=== PATIENT | female | born 1950 | race Caucasian/White ===

== ENCOUNTER 2016-12-13 11:31 | Inpatient (IN) ==
--- NOTE | 2016-12-13 12:21 | Emergency Department Note ---
Disposition Clinical Impression: Transient cerebral ischemia Disposition: Admitted As Inpatient Condition: Fair Referrals: Sarah Parkinson CNP [Primary Care Provider] - Forms: ED Satisfaction Letter Neuro HPI - General Chief Complaint: ED Neuro Symptoms/Deficit Stated Complaint: neuro symptoms, hip pain Time Seen by Provider: 12/13/16 11:58 Source: patient, family Limitations: no limitations Nursing Notes Reviewed: Yes Vital Signs Reviewed: Yes - History of Present Illness HPI Narrative: Patient fell 3 days ago onto her right hip which was a trip and fall and not a syncopal episode and she does have sharp right hip pain which is worse with range of motion when she is able to ambulate and that is the reason she decided to come to the emergency department but on her way here at 11:00 developed some minimal numbness of the right arm and right face. No numbness of the leg. No slurred speech, facial droop or confusion. Patient is on Plavix. No medication used specifically for today's symptoms. The patient does have a history of TIA. Social history: No smoking or alcohol. Is here with her boyfriend - Related Data Home Medications: Home Medications Medication Instructions Recorded Confirmed ALPRAZolam [Xanax 1 MG Tablet] 1 mg PO QID PRN 12/13/16 12/13/16 Amitriptyline [Elavil] 50 mg PO BID 12/13/16 12/13/16 Atenolol [Tenormin] 50 mg PO BID 12/13/16 12/13/16 Bupropion HCl [Wellbutrin Xl] 300 mg PO DAILY 12/13/16 12/13/16 Clopidogrel [Plavix] 75 mg PO DAILY 12/13/16 12/13/16 Doxepin HCl [Doxepin HCl] 50 mg PO HS 12/13/16 12/13/16 Esomeprazole Magnesium [Nexium] 40 mg PO DAILY 12/13/16 12/13/16 FLUoxetine HCl [PROzac] 20 mg PO BID 12/13/16 12/13/16 Furosemide [Lasix] 40 mg PO QPM 12/13/16 12/13/16 Furosemide [Lasix] 80 mg PO QAM 12/13/16 12/13/16 Gabapentin [Neurontin] 800 mg PO TID 12/13/16 12/13/16 Glimepiride [Amaryl] 2 mg PO DAILY 12/13/16 12/13/16 HYDROcodone/Acet 10/325 mg [[place] 1 tab PO Q6HR PRN 12/13/16 12/13/16 10-325 mg] Hydroxychloroquine [Plaquenuil] 200 mg PO BID 12/13/16 12/13/16 Isosorbide MONOnitrate (24 HR) 60 mg PO DAILY 12/13/16 12/13/16 [Imdur] Lisinopril [Zestril] 20 mg PO BID 12/13/16 12/13/16 Oxybutynin Chloride [Ditropan Xl] 10 mg PO DAILY 12/13/16 12/13/16 Rotigotine [Neupro] 1 patch TD DAILY 12/13/16 12/13/16 Simvastatin [Zocor] 40 mg PO DAILY 12/13/16 12/13/16 Xyzal 5 mg PO DAILY 12/13/16 12/13/16 Allergies/Adverse Reactions: Allergies Allergy/AdvReac Type Severity Reaction Status Date / Time diphenhydramine Allergy Palpitation Verified 12/13/16 12:54 [From Benadryl] s shellfish derived Allergy Palpitation Verified 12/13/16 12:54 s Review of Systems: Constitutional: No fever Vision: No blurred vision ENT: No rhinorrhea Respiratory: No new cough Allergic: No allergies : No blood in urine GI: No blood in stool Hematologic: No bruising Dermatologic: No skin rash Musculoskeletal: + pain in the extremities Neuro: + numbness of the extremities Past Medical History - Past Medical History Medical history: Reports: COPD, diabetes, hypertension, TIA Psychiatric history: Reports: no psych history - Social History Smoking Status: Never smoker Smokeless Tobacco Status: No Alcohol use: Reports: none Drug use: Reports: none Physical Exam CONSTITUTIONAL: Well-appearing; well-nourished; A&O X3, in no apparent distress HEAD: Normocephalic; atraumatic. EYES: PERRL, EOMI, no scleral icterus NOSE: The nose is normal in appearance without rhinorrhea NECK: Supple without rigidity, no KATJA RESP: Normal chest excursion with respiration; breath sounds clear and equal bilaterally; no wheezes, rhonchi, or rales CARD: Regular rhythm, without murmurs, rub or gallop ABD: Non-distended; non-tender, soft, without rigidity, rebound or guarding SKIN: Normal for age and race; warm and dry; no apparent lesions, no rash NEUROLOGICAL: Patient is alert and oriented times three. Cranial nerves III- XII are intact. Sensory and motor functions are intact. Finger to nose testing is equal and normal bilaterally. Stroke scale 0 - General Limitations: no limitations General appearance: alert Course Vital Signs Temperature 99.2 F 12/13/16 11:39 Pulse Rate 86 12/13/16 11:39 Respiratory Rate 18 12/13/16 11:39 Blood Pressure 157/82 12/13/16 11:39 O2 Sat by Pulse Oximetry 97 12/13/16 11:39 Temperature 99.2 F 12/13/16 11:39 Pulse Rate 62 12/13/16 13:47 Respiratory Rate 18 12/13/16 13:47 Blood Pressure 154/67 12/13/16 13:47 O2 Sat by Pulse Oximetry 96 12/13/16 13:47 Oxygen Delivery Oxygen Delivery Room Air Neuro Symptoms/Deficit - MDM Narrative Medical decision making narrative: Patient does have a stroke scale of 0. Her symptoms are most concerning for a transient ischemic attack. I will also order a right hip x-ray are she does have pain with palpation over the right hip. This area is normal appearance without erythema or cuts or breaks in the skin. Does have pain with range of motion. The peripheral pulses are 2+ in all [address] brain, labs are pending. The patient will likely be admitted. She is not a thrombolytic candidate due to a stroke scale of 0 1222 - Medical Records Medical records reviewed: Yes I reviewed the patient's medical records. - Lab Data Lab results reviewed: Yes I reviewed the patient's lab results. Result diagrams: 12/13/16 12:12 12/13/16 12:12 Lab Results 12/13/16 12/13/16 12/13/16 Range/Units 12:12 12:12 12:12 WBC 6.6 (4.3-11.1) K/mcL RBC 4.23 (3.82-4.97) M/mcL Hgb 12.3 (11.5-15.4) g/dL Hct 38.3 (35.3-44.9) % MCV 90.5 (83.0-100.0) fL MCH 29.1 (28.0-33.3) pg MCHC 32.1 (31.6-35.5) g/dL RDW 13.2 (11.5-14.5) % Plt Count 253 (140-400) K/mcL MPV 9.9 (9.4-12.4) fL Immature Gran % 0.2 (0-4) % Seg Neutrophils % 59.6 % Lymphocytes % 25.6 % Monocytes % 11.1 % Eosinophils % 2.6 % Basophils % 0.9 % Neutrophils # 3.9 (1.6-8.9) K/mcL Lymphocytes # 1.7 (0.6-4.6) K/mcL Monocytes # 0.7 (0.0-1.3) K/mcL Eosinophils # 0.2 (0.0-0.6) K/mcL Basophils # 0.1 (0.0-0.2) K/mcL Sodium 140 (136-145) mEq/L Potassium 3.8 (3.5-4.5) mEq/L Chloride 104 (98-109) mEq/L Carbon Dioxide 27 (19-29) mEq/L BUN 10 (7-20) mg/dL Creatinine 0.85 (0.57-1.11) mg/dL Est GFR ( Amer) > 60 (> 60) Est GFR (Non-Af Amer) > 60 (> 60) BUN/Creatinine Ratio 12 (6-26) Glucose 123 H (70-99) mg/dL Calculated Osmolality 290 (280-300) Calcium 9.4 (8.6-10.8) mg/dL Troponin I 0.00 (0-0.03) ng/mL - Radiology Data Radiology results reviewed: Yes I reviewed the patient's radiology results. NIH Stroke Scale - Level of Consciousness LOC: Alert - LOC Questions LOC Questions: Answers both correctly - LOC Commands LOC Commands: Performs both correctly - Best Gaze Best Gaze: Normal - Visual Visual: No visual loss - Facial Palsy Facial Palsy: Normal - Motor Arms Motor Arm-Left: No drift for 10 seconds Motor Arm-Right: No drift for 10 seconds - Motor Legs Motor Leg-Left: No drift for 5 seconds Motor Leg-Right: No drift for 5 seconds - Limb Ataxia Limb Ataxia: Normal, No Ataxia - Sensory Sensory: Normal - Best Language Best Language: No aphasia - Dysarthria Dysarthria: Normal - Extinction and Inattention Extinction and Inattention: Normal - NIHSS Total Score NIHSS Total Score: 0 TPA Checklist - LKW: 3-4.5 hrs Add. Warnings/Precautions Patient/family understanding: The patient/family members have been counseled and understood the risk, benefit , and alternatives of treatment.
[2016-12-13 12:22] LABS: Basophils # 0.1 K/mcL (0.0-0.2); Basophils % 0.9 %; Eosinophils # 0.2 K/mcL (0.0-0.6); Eosinophils % 2.6 %; Hematocrit 38.3 % (35.3-44.9); Hemoglobin 12.3 g/dL (11.5-15.4); Immature Granulocytes % 0.2 % (0-4); Lymphocytes # 1.7 K/mcL (0.6-4.6); Lymphocytes % 25.6 %; Mean Corpuscular HGB Conc 32.1 g/dL (31.6-35.5); Mean Corpuscular Hemoglobin 29.1 pg (28.0-33.3); Mean Corpuscular Volume 90.5 fL (83.0-100.0); Mean Platelet Volume 9.9 fL (9.4-12.4); Monocytes # 0.7 K/mcL (0.0-1.3); Monocytes % 11.1 %; Neutrophils # 3.9 K/mcL (1.6-8.9); Platelet Count 253 K/mcL (140-400); Red Blood Count 4.23 M/mcL (3.82-4.97); Red Cell Distribution Width 13.2 % (11.5-14.5); Segmented Neutrophils % 59.6 %
[2016-12-13 12:32] LABS: BUN/Creatinine Ratio 12 (6-26); Blood Urea Nitrogen 10 mg/dL (7-20); Calcium 9.4 mg/dL (8.6-10.8); Carbon Dioxide 27 mEq/L (19-29); Chloride 104 mEq/L (98-109); Glucose 123 mg/dL (70-99); Osmolality,Calculated 290 (280-300); Potassium 3.8 mEq/L (3.5-4.5); Sodium 140 mEq/L (136-145); eGFR For African Americans > 60 (> 60); eGFR For Non-African Americans > 60 (> 60)
[2016-12-13] MEDS ORDERED: *HR* Promethazine 25 MG/ML VIAL IVP PRN (15:10)
[2016-12-13] MEDS ORDERED: *HR* HYDROcodone/Acet 5/325 mg TABLET PO PRN (15:10)
[2016-12-13] MEDS ORDERED: Naloxone 0.4 MG/ML INJ IVP PRN (15:10)
[2016-12-13] MEDS ORDERED: MOM Conc 10 ML UD.LIQ PO PRN (15:10)
[2016-12-13] MEDS ORDERED: Acetaminophen 325 MG TABLET PO PRN (15:10)
[2016-12-13] MEDS ORDERED: Ondansetron 4 MG/2 ML VIAL IVP PRN (15:10)
--- NOTE | 2016-12-13 15:31 | Internal Med History&Physical ---
Date of Encounter: 12/13/16 Time of Encounter: 14:45 Assessment and Plan (1) Right hip pain Current visit: Yes Status: Acute Will place the pt into Med Surg for observation Reviewed her Rt hip X ray - no acute fracture.. DJD changed noticed Will get PT / OT eval Also get Lumbar spine x ray Concerning for Sciatica pain.. if pain persists will get MRI of lumbar spine Cont symptomatic and supportive care on PO an IV analgesics PRN (2) Transient cerebral ischemia Current visit: Yes Status: Acute ruled out Her symptoms does not look like TIA All her parasthesia symptoms are chronic and intermittent for this pt Reviewed CT of Head no acute changes Does not need any further work up regarding this cont home med Plavix for now Qualifiers: Qualified Code(s): G45.9 - Transient cerebral ischemic attack, unspecified (3) Low back pain radiating down leg Current visit: Yes Status: Acute (4) Sciatica of right side Current visit: Yes Status: Acute Ordered lumbar spine X ray (5) HTN (hypertension) Current visit: Yes Status: Chronic stable resumed all her home meds Qualifiers: Qualified Code(s): I10 - Essential (primary) hypertension (6) DM2 (diabetes mellitus, type 2) Current visit: Yes Status: Acute Resumed home med Amaryl will check HgA1C in AM Qualifiers: Qualified Code(s): E11.9 - Type 2 diabetes mellitus without complications Internal Medicine - H&P: HPI Chief complaint: Rt hip pain Admitted From: Emergency Dept Plans for Post Hospital Care: Home History of present illness: Ms. Dodge is a 65 year old female with known PMH of TIA, Parkinson's disease, chronic parasthesia symptoms, HTN, HLD, and Low back pain , now she presented to our ER today c/o worsening Rt hip pain and low back pain. She always feels numbness in her Rt leg. Denied any acute new onset of focal weakness , numbness or parasthesia symptoms. She did mention to ER attending about Facial numbness. Even her Rt facial numbness is chronic and intermittent for her. Her main concern and chief complaint today is Rt hip pain. Pt denied any trauma to Rt hip. Denied any CP / SOB. No GI / symptoms Past Med Surg Social Fam HX - Past Medical History Medical history: COPD, diabetes, hypertension, TIA Psychiatric history: no psych history - Past Surgical History Surgical History: no surgical history (No recent surgeries) - Social History Smoking Status: Never smoker Smokeless Tobacco Status: No Alcohol use: none Drug use: none - Additional Family History Additional family history: Reviewed and non contribuitory to current problem Internal Medicine - H&P: Meds ALPRAZolam [Xanax 1 MG Tablet] 1 mg PO QID PRN 12/13/16 [History] Amitriptyline [Elavil] 50 mg PO BID 12/13/16 [History] Atenolol [Tenormin] 50 mg PO BID 12/13/16 [History] Bupropion HCl [Wellbutrin Xl] 300 mg PO DAILY 12/13/16 [History] Clopidogrel [Plavix] 75 mg PO DAILY 12/13/16 [History] Doxepin HCl [Doxepin HCl] 50 mg PO HS 12/13/16 [History] Esomeprazole Magnesium [Nexium] 40 mg PO DAILY 12/13/16 [History] FLUoxetine HCl [PROzac] 20 mg PO BID 12/13/16 [History] Furosemide [Lasix] 40 mg PO QPM 12/13/16 [History] Furosemide [Lasix] 80 mg PO QAM 12/13/16 [History] Gabapentin [Neurontin] 800 mg PO TID 12/13/16 [History] Glimepiride [Amaryl] 2 mg PO DAILY 12/13/16 [History] HYDROcodone/Acet 10/325 mg [[place] 10-325 mg] 1 tab PO Q6HR PRN 12/13/16 [History ] Hydroxychloroquine [Plaquenuil] 200 mg PO BID 12/13/16 [History] Isosorbide MONOnitrate (24 HR) [Imdur] 60 mg PO DAILY 12/13/16 [History] Lisinopril [Zestril] 20 mg PO BID 12/13/16 [History] Oxybutynin Chloride [Ditropan Xl] 10 mg PO DAILY 12/13/16 [History] Rotigotine [Neupro] 1 patch TD DAILY 12/13/16 [History] Simvastatin [Zocor] 40 mg PO DAILY 12/13/16 [History] Xyzal 5 mg PO DAILY 12/13/16 [History] 3 Allergy/AdvReac Type Severity Reaction Status Date / Time diphenhydramine Allergy Palpitation Verified 12/13/16 12:54 [From Benadryl] s shellfish derived Allergy Palpitation Verified 12/13/16 12:54 s All Systems PM: A 10-system review of systems was performed and is negative for pertinent findings except as documented above in the HPI. Review of systems: All the systems are reviewed everything is benign except the systems and symptoms I mentioned in the history of present illness - Constitutional Vitals: Temp Pulse Resp BP Pulse Ox 99.2 F 62 16 150/71 96 12/13/16 11:39 12/13/16 13:47 12/13/16 14:51 12/13/16 14:51 12/13/16 13:47 General appearance: Present: A&O X 3, pleasant, no acute distress, answers questions appropriately - Head Head exam: Present: atraumatic, normal inspection - Neck Neck exam general surgery: Present: supple - Respiratory Respiratory exam: Present: CTAB. Absent: accessory muscle use, rales, rhonchi, wheezes - Cardiovascular Cardiovascular exam: Present: RRR, +S1, +S2. Absent: diastolic murmur, gallop, rubs, systolic murmur - GI/Abdominal GI/Abdominal exam: Present: normal bowel sounds, soft, no peritoneal signs. Absent: distended, tenderness - Extremities Exam Extremities exam: Absent: calf tenderness, pedal edema, tenderness Additional comments: ROM slightly limited in Rt hip due to pain.. no swelling / no sings of infection noticed in Rt hip area. - Back Exam Back exam: Present: paraspinal tenderness (lower lumbar region), vertebral tenderness (lumbar region). Absent: CVA tenderness (L), CVA tenderness (R) - Neurological Exam Neurological exam: Present: alert, CN II-XII intact, oriented X3, no focal deficits, strengths equal and symetr throughout. Absent: motor sensory deficit , pronater drift, facial droop, speech deficit - Psychiatric Psychiatric exam: Present: normal affect, normal mood Internal Med - H&P Results - Labs CBC & Chem 7: 12/13/16 12:12 12/13/16 12:12
[2016-12-13] MEDS: Furosemide 40 MG TABLET PO SCH (17:35)
[2016-12-13] MEDS: ALPRAZolam 1 MG TABLET PO PRN (17:35)
[2016-12-13] MEDS: *HR* Morphine 2 MG/ML SYRINGE IVP PRN (17:35)
[2016-12-13] MEDS: Lisinopril 20 MG TABLET PO SCH (20:27)
[2016-12-13] MEDS: Gabapentin 400 MG CAPSULE PO SCH (20:27)
[2016-12-13] MEDS: FLUoxetine 20 MG CAPSULE PO SCH (20:28)
[2016-12-13] MEDS: Famotidine 20 MG TABLET PO SCH (20:30)
[2016-12-13] MEDS: *HR* HYDROcodone/Acet 10/325 mg TABLET PO PRN (20:30)
[2016-12-14] MEDS: *HR* Morphine 2 MG/ML SYRINGE IVP PRN ×3 (04:06→19:52)
[2016-12-14 04:41] LABS: Basophils # 0.1 K/mcL (0.0-0.2); Basophils % 0.8 %; Eosinophils # 0.3 K/mcL (0.0-0.6); Eosinophils % 4.3 %; Hematocrit 36.6 % (35.3-44.9); Hemoglobin 11.6 g/dL (11.5-15.4); Immature Granulocytes % 0.2 % (0-4); Lymphocytes # 2.1 K/mcL (0.6-4.6); Lymphocytes % 32.6 %; Mean Corpuscular HGB Conc 31.7 g/dL (31.6-35.5); Mean Corpuscular Hemoglobin 28.8 pg (28.0-33.3); Mean Corpuscular Volume 90.8 fL (83.0-100.0); Mean Platelet Volume 10.3 fL (9.4-12.4); Monocytes # 0.8 K/mcL (0.0-1.3); Monocytes % 12.5 %; Neutrophils # 3.2 K/mcL (1.6-8.9); Platelet Count 261 K/mcL (140-400); Red Blood Count 4.03 M/mcL (3.82-4.97); Red Cell Distribution Width 13.1 % (11.5-14.5); Segmented Neutrophils % 49.6 %
[2016-12-14 04:46] LABS: Hemoglobin A1C 6.6 %
[2016-12-14 05:01] LABS: BUN/Creatinine Ratio 8 (6-26); Blood Urea Nitrogen 8 mg/dL (7-20); Calcium 8.8 mg/dL (8.6-10.8); Carbon Dioxide 28 mEq/L (19-29); Chloride 105 mEq/L (98-109); Chol/HDL Ratio 2.4 (0-4.9); Cholesterol 118 mg/dL (< 200); Glucose 124 mg/dL (70-99); HDL Cholesterol 50 mg/dL (40-59); LDL Cholesterol,Calculated 55 mg/dL (0-99); Osmolality,Calculated 292 (280-300); Potassium 3.8 mEq/L (3.5-4.5); Sodium 141 mEq/L (136-145); Triglycerides 67 mg/dL (< 150); eGFR For African Americans > 60 (> 60); eGFR For Non-African Americans 52 (> 60)
[2016-12-14] MEDS: Gabapentin 400 MG CAPSULE PO SCH ×3 (07:43→20:00)
[2016-12-14] MEDS: Isosorbide MONOnitrate (24 HR) 60 MG TAB.ER.24H PO SCH (07:43)
[2016-12-14] MEDS: Famotidine 20 MG TABLET PO SCH ×2 (07:43→19:59)
[2016-12-14] MEDS: (Rotigotine [Neupro] 1 PATCH) TP SCH (07:44)
[2016-12-14] MEDS: Lisinopril 20 MG TABLET PO SCH ×2 (07:44→20:03)
[2016-12-14] MEDS: Loratadine 10 MG TABLET PO SCH (07:44)
[2016-12-14] MEDS: Furosemide 40 MG TABLET PO SCH ×2 (07:44→17:30)
[2016-12-14] MEDS: *HR* Glimepiride 2 MG TABLET PO SCH (07:44)
[2016-12-14] MEDS: FLUoxetine 20 MG CAPSULE PO SCH ×2 (07:44→19:59)
[2016-12-14] MEDS: BuPROPion XL (24 HR) 150 MG TABLET PO SCH (07:44)
--- NOTE | 2016-12-14 10:27 | Internal Med Progress Note ---
Date of Encounter: 12/14/16 Time of Encounter: 10:30 - Assessment and plan (1) Transient cerebral ischemia Current Visit: Yes Status: Acute Assessment and plan: Sudden onset of right facial numbness and right hand numbness concerning for TIA. We will obtain an MRI of the brain, echocardiogram and carotid Doppler as part of the workup. We will check lipid panel. Qualifiers: Qualified Code(s): G45.9 - Transient cerebral ischemic attack, unspecified (2) Right hip pain Current Visit: Yes Status: Acute Assessment and plan: Hip x-ray shows no fracture however it is recommended that MRI is obtained for increased sensitivity to detect occult fracture. I will obtain an MR of the right hip to rule out occult fracture. (3) Low back pain radiating down leg Current Visit: Yes Status: Acute Assessment and plan: She does have tenderness to palpation of the lower lumbar spine. She has a history of degenerative disease. Some of her hip pain could be referred from degenerative disc disease and or spinal stenosis. I will obtain an MRI of the lumbar spine to evaluate for her back pain and right hip pain. (4) HTN (hypertension) Current Visit: Yes Status: Chronic Assessment and plan: Continue with atenolol and lisinopril. Qualifiers: Hypertension type: essential hypertension Qualified Code(s): I10 - Essential (primary) hypertension (5) DM2 (diabetes mellitus, type 2) Current Visit: Yes Status: Acute Assessment and plan: Diabetic diet. Continue with glimepiride. Absent insulin sliding scale low- dose. Qualifiers: Diabetes mellitus complication status: without complication Diabetes mellitus usp insulin use: without terminal worker use Qualified Code(s): E11.9 - Type 2 diabetes mellitus without complications - Subjective Interval history: Patient presented to the hospital for evaluation of right hip pain which she says started 3 days ago, worse with ambulation, described as sharp and burning associated with point tenderness over the right hip, no numbness or weakness of the right lower extremity. While evaluated in the emergency department yesterday she also admitted to having worsening right facial numbness and right upper extremity numbness which she has been having on and off in the past. - Constitutional Vitals: Temp Pulse Resp BP Pulse Ox 98.4 F 56 16 113/67 95 12/14/16 06:54 12/14/16 06:54 12/14/16 06:54 12/14/16 06:54 12/14/16 06:54 General appearance: Present: A&O X 3, pleasant, no acute distress, answers questions appropriately - Respiratory Respiratory exam: Present: CTAB. Absent: accessory muscle use, rales, rhonchi, wheezes - Cardiovascular Cardiovascular exam: Present: RRR, +S1, +S2. Absent: diastolic murmur, gallop, rubs, systolic murmur - GI/Abdominal GI/Abdominal exam: Present: normal bowel sounds, soft, no peritoneal signs. Absent: distended, tenderness - Extremities Exam Extremities exam: Present: warm, radial pulses palpable and symmetrical. Absent : calf tenderness, cyanotic, pedal edema - Neurological Exam Neurological exam: Present: CN II-XII intact, oriented X3, no focal deficits. Absent: pronater drift, facial droop, speech deficit - Skin Skin exam: Present: dry, intact Internal Medicine: Result - Labs CBC & Chem 7: 12/14/16 03:39 12/14/16 03:39 Labs: Short CBC 12/14/16 Range/Units 03:39 WBC 6.3 (4.3-11.1) K/mcL Hgb 11.6 (11.5-15.4) g/dL Hct 36.6 (35.3-44.9) % Plt Count 261 (140-400) K/mcL Neutrophils # 3.2 (1.6-8.9) K/mcL BMP 12/14/16 03:39 Sodium 141 Potassium 3.8 Chloride 105 Carbon Dioxide 28 BUN 8 Creatinine 1.06 Glucose 124 H Calcium 8.8 - Impressions Impressions Lumbar Spine X-Ray 12/13/16 15:14 IMPRESSION: Mild lower lumbar spine degenerative changes, not significantly progressed. D/ / 12/13/2016 15:52:48 Pito Lozano MD / rosamaria Interpreting Provider: Pito Lozano MD Consult Discharge Plan - Plan Referrals: Sarah Parkinson CNP [Primary Care Provider] -
[2016-12-14] MEDS ORDERED: *HR* Dextrose 50 % in Water (Syg) 50 ML SYRINGE IVP PRN (10:31)
[2016-12-14] MEDS ORDERED: D5% in Water 1,000 ML IVC PRN (10:31)
[2016-12-14] MEDS ORDERED: Dextrose Gel 15 GM PO PRN ×2 (10:31)
[2016-12-14] MEDS: Insulin LISPRO 300 UNITS/3 ML VIAL SQ SCH ×3 (11:16→22:18)
[2016-12-14] MEDS: ALPRAZolam 1 MG TABLET PO PRN ×2 (11:17→19:59)
[2016-12-14] MEDS: *HR* HYDROcodone/Acet 10/325 mg TABLET PO PRN (13:57)
[2016-12-15] MEDS: *HR* Enoxaparin 40 MG/0.4 ML SYRINGE SQ SCH (05:23)
[2016-12-15 06:04] LABS: Basophils # 0.1 K/mcL (0.0-0.2); Basophils % 0.8 %; Eosinophils # 0.2 K/mcL (0.0-0.6); Eosinophils % 3.1 %; Hematocrit 37.4 % (35.3-44.9); Hemoglobin 11.9 g/dL (11.5-15.4); Immature Granulocytes % 0.1 % (0-4); Lymphocytes # 2.2 K/mcL (0.6-4.6); Lymphocytes % 29.5 %; Mean Corpuscular HGB Conc 31.8 g/dL (31.6-35.5); Mean Corpuscular Hemoglobin 28.9 pg (28.0-33.3); Mean Corpuscular Volume 90.8 fL (83.0-100.0); Mean Platelet Volume 10.3 fL (9.4-12.4); Monocytes # 0.8 K/mcL (0.0-1.3); Monocytes % 10.8 %; Neutrophils # 4.1 K/mcL (1.6-8.9); Platelet Count 253 K/mcL (140-400); Red Blood Count 4.12 M/mcL (3.82-4.97); Red Cell Distribution Width 13.3 % (11.5-14.5); Segmented Neutrophils % 55.7 %
[2016-12-15] MEDS: *HR* HYDROcodone/Acet 10/325 mg TABLET PO PRN ×2 (06:14→14:49)
[2016-12-15 06:20] LABS: BUN/Creatinine Ratio 16 (6-26); Blood Urea Nitrogen 16 mg/dL (7-20); Calcium 9.2 mg/dL (8.6-10.8); Carbon Dioxide 28 mEq/L (19-29); Chloride 104 mEq/L (98-109); Glucose 128 mg/dL (70-99); Osmolality,Calculated 293 (280-300); Potassium 3.9 mEq/L (3.5-4.5); Sodium 140 mEq/L (136-145); eGFR For African Americans > 60 (> 60); eGFR For Non-African Americans 55 (> 60)
[2016-12-15] MEDS: Insulin LISPRO 300 UNITS/3 ML VIAL SQ SCH ×4 (07:47→21:20)
[2016-12-15] MEDS: Loratadine 10 MG TABLET PO SCH (09:26)
[2016-12-15] MEDS: *HR* Morphine 2 MG/ML SYRINGE IVP PRN (09:26)
[2016-12-15] MEDS: Isosorbide MONOnitrate (24 HR) 60 MG TAB.ER.24H PO SCH (09:26)
[2016-12-15] MEDS: *HR* Glimepiride 2 MG TABLET PO SCH (09:27)
[2016-12-15] MEDS: Famotidine 20 MG TABLET PO SCH ×2 (09:27→21:15)
[2016-12-15] MEDS: BuPROPion XL (24 HR) 150 MG TABLET PO SCH (09:27)
[2016-12-15] MEDS: Gabapentin 400 MG CAPSULE PO SCH ×3 (09:27→21:15)
[2016-12-15] MEDS: FLUoxetine 20 MG CAPSULE PO SCH ×2 (09:27→21:15)
[2016-12-15] MEDS: Lisinopril 20 MG TABLET PO SCH ×2 (09:27→21:39)
[2016-12-15] MEDS: Furosemide 40 MG TABLET PO SCH ×2 (09:27→17:59)
[2016-12-15] MEDS: (Rotigotine [Neupro] 1 PATCH) TP SCH (09:28)
--- NOTE | 2016-12-15 17:28 | Internal Med Progress Note ---
Date of Encounter: 12/15/16 Time of Encounter: 11:00 - Assessment and plan (1) Transient cerebral ischemia Current Visit: Yes Status: Acute Assessment and plan: Sudden onset of right facial numbness and right hand numbness concerning for TIA. MRI of the brain was negative for acute CVA, will obtain echocardiogram and carotid Doppler as part of the workup. We will check lipid panel. Continue aspirin. Qualifiers: Qualified Code(s): G45.9 - Transient cerebral ischemic attack, unspecified (2) Right hip pain Current Visit: Yes Status: Acute Assessment and plan: Hip x-ray shows no fracture however it is recommended that MRI is obtained for increased sensitivity to detect occult fracture. I MRI of the right hip shows no fracture or any acute abnormalities. (3) Low back pain radiating down leg Current Visit: Yes Status: Acute Assessment and plan: She does have tenderness to palpation of the lower lumbar spine. She has a history of degenerative disease. Some of her hip pain could be referred from degenerative disc disease and or spinal stenosis. MRI of the lumbar spine shows findings concerning for degenerative disease. Pain consistent with sciatica. Start Percocet. Stop morphine. Continue with gabapentin. Shingles enters the differential however there is no rash. "Zoster sine herpete" is an uncertain clinical entity and there is not enough data to recommend antiviral treatment. (4) HTN (hypertension) Current Visit: Yes Status: Chronic Assessment and plan: Continue with atenolol and lisinopril. Qualifiers: Hypertension type: essential hypertension Qualified Code(s): I10 - Essential (primary) hypertension (5) DM2 (diabetes mellitus, type 2) Current Visit: Yes Status: Acute Assessment and plan: Diabetic diet. Continue with glimepiride. Absent insulin sliding scale low- dose. Qualifiers: Diabetes mellitus complication status: without complication Diabetes mellitus penitentiary insulin use: without penitentiary use Qualified Code(s): E11.9 - Type 2 diabetes mellitus without complications - Subjective Interval history: Patient reports severe right hip and right buttock burning pain, worse with ROM , improves with IV morphine only. Denies any associated lower extremity weakness. She has been able to ambulate within her room. She denies any associated rash. - Constitutional Vitals: Temp Pulse Resp BP Pulse Ox 97.3 F L 58 15 94/60 95 12/15/16 15:39 12/15/16 15:39 12/15/16 15:39 12/15/16 15:39 12/15/16 15:39 General appearance: Present: A&O X 3, pleasant, no acute distress, answers questions appropriately - Eye Eye exam: Present: PERRL, conjuntiva pink, sclera anicteric Pupils: Present: PERRL - Respiratory Respiratory exam: Present: CTAB. Absent: accessory muscle use, rales, rhonchi, wheezes - Cardiovascular Cardiovascular exam: Present: RRR, +S1, +S2. Absent: diastolic murmur, gallop, rubs, systolic murmur - GI/Abdominal GI/Abdominal exam: Present: normal bowel sounds, soft, no peritoneal signs. Absent: distended, tenderness - Skin Skin exam: Present: dry, intact - Other Additional findings: Musculoskeletal: Point tenderness to palpation over the right gluteal area and right lower lumbar area as well as the right hip. Internal Medicine: Result - Labs CBC & Chem 7: 12/15/16 05:04 12/15/16 05:04 Labs: Short CBC 12/15/16 Range/Units 05:04 WBC 7.4 (4.3-11.1) K/mcL Hgb 11.9 (11.5-15.4) g/dL Hct 37.4 (35.3-44.9) % Plt Count 253 (140-400) K/mcL Neutrophils # 4.1 (1.6-8.9) K/mcL BMP 12/15/16 05:04 Sodium 140 Potassium 3.9 Chloride 104 Carbon Dioxide 28 BUN 16 Creatinine 1.01 Glucose 128 H Calcium 9.2 Consult Discharge Plan - Plan Referrals: Sarah Parkinson CNP [Primary Care Provider] -
[2016-12-15] MEDS ORDERED: Aspirin Enteric Coated 81 MG Tablet PO SCH (17:30)
[2016-12-15] MEDS: *HR* OxyCODONE/APAP 7.5/325 TABLET PO PRN (17:59)
[2016-12-15] MEDS: ALPRAZolam 1 MG TABLET PO PRN (21:18)
[2016-12-16] MEDS: *HR* Enoxaparin 40 MG/0.4 ML SYRINGE SQ SCH (05:08)
[2016-12-16] MEDS: *HR* OxyCODONE/APAP 7.5/325 TABLET PO PRN (05:13)
[2016-12-16] MEDS: Gabapentin 400 MG CAPSULE PO SCH ×3 (08:43→20:44)
[2016-12-16] MEDS: Famotidine 20 MG TABLET PO SCH ×2 (08:43→20:44)
[2016-12-16] MEDS: FLUoxetine 20 MG CAPSULE PO SCH ×2 (08:44→20:45)
[2016-12-16] MEDS: BuPROPion XL (24 HR) 150 MG TABLET PO SCH (08:44)
[2016-12-16] MEDS: Loratadine 10 MG TABLET PO SCH (08:45)
[2016-12-16] MEDS: *HR* Glimepiride 2 MG TABLET PO SCH (08:45)
[2016-12-16] MEDS: (Rotigotine [Neupro] 1 PATCH) TP SCH (08:45)
[2016-12-16] MEDS: Lisinopril 20 MG TABLET PO SCH (08:46)
[2016-12-16] MEDS: Isosorbide MONOnitrate (24 HR) 60 MG TAB.ER.24H PO SCH (08:46)
[2016-12-16] MEDS: Furosemide 40 MG TABLET PO SCH (08:47)
[2016-12-16] MEDS: Insulin LISPRO 300 UNITS/3 ML VIAL SQ SCH ×4 (08:47→20:45)
[2016-12-16] MEDS: ALPRAZolam 1 MG TABLET PO PRN (10:51)
--- NOTE | 2016-12-16 11:45 | Carotid Imaging Report ---
Carotid Duplex Patient Name:Laura Dodge Order Number:[id number] Procedure Date:12/15/2016 Date:1950ge:65 yrs Gender:Female Lt BP:103 / 66 mmHg Rt.BP:101 / 62 mmHgHeart Rate: Location:[facility] Room #: [id number] Material Stockkeeper Yard:Nevaeh Solo RDCS Referring MD:Olaf Ferrari MD Reading MD:Eyal Suarez MD Primary Indications:TIA Risk Factors Yes/No Hypertension Yes Hypercholesterolemia Yes Diabetes Yes Impressions: Findings: Bilateral ICA has a severe, 60-79% stenosis. Recommendations: Risk Factor Modification, Medical Therapy, and Follow up exam 12 months. After imaging the patient returned to their room. Findings Carotid Duplex: Right: The right proximal common carotid artery has a PSV of 109 cm/s and a EDV of 25 cm/s. The right mid common carotid artery has a PSV of 101 cm/s and a EDV of 28 cm/s. The right distal common carotid artery has a PSV of 92 cm/s and a EDV of 24 cm/s. The right bifurcation has a PSV of 78 cm/s and a EDV of 21 cm/s. The right proximal internal carotid artery has a PSV of 74 cm/s and a EDV of 20 cm/s. The right mid internal carotid artery has a PSV of 88 cm/s and a EDV of 28 cm/s. There is 60-79% stenosis in the right distal internal carotid artery with a PSV of 168 cm/s and a EDV of 47 cm/s. The right eca has a PSV of 146 cm/s and a EDV of 20 cm/s. The right vertebral artery has a PSV of 99 cm/s and a EDV of 23 cm/s. Left: The left proximal common carotid artery has a PSV of 126 cm/s and a EDV of 38 cm/s. The left mid common carotid artery has a PSV of 124 cm/s and a EDV of 34 cm/s. The left distal common carotid artery has a PSV of 116 cm/s and a EDV of 30 cm/s. The left bifurcation has a PSV of 109 cm/s and a EDV of 30 cm/s. There is 60-79% stenosis in the left proximal internal carotid artery with a PSV of 168 cm/s and a EDV of 52 cm/s. There is 60-79% stenosis in the left mid internal carotid artery with a PSV of 172 cm/s and a EDV of 29 cm/s. There is 60-79% stenosis in the left distal internal carotid artery with a PSV of 157 cm/s and a EDV of 50 cm/s. The left eca has a PSV of 169 cm/s and a EDV of 29 cm/s. The left vertebral artery has a PSV of 50 cm/s and a EDV of 11 cm/s. Prior Study: No prior study available for comparison. Carotid Results Right PSV EDV Assessment Proximal CCA 109 25 Normal Mid CCA 101 28 Normal Distal CCA 92 24 Normal Bifurcation 78 21 Normal Proximal ICA 74 20 Normal Mid ICA 88 28 Normal Distal ICA 168 47 60-79% stenosis ECA 146 20 Normal Vertebral Artery 99 23 Normal Left PSV EDV Assessment Proximal CCA 126 38 Normal Mid CCA 124 34 Normal Distal CCA 116 30 Normal Bifurcation 109 30 Normal Proximal ICA 168 52 60-79% stenosis Mid ICA 172 29 60-79% stenosis Distal ICA 157 50 60-79% stenosis ECA 169 29 Normal Vertebral Artery 50 11 Normal Ratio's Right ICA/CCA Ratio: 1.66 ICA/CCA Values: 168/101 Left ICA/CCA Ratio: 1.39 ICA/CCA Values: 172/124 Updated by Eyal Suarez MD on 12/16/2016 11:38:33 AM electronically signed on 12/16/2016 11:38:43 AM with status of Final
--- NOTE | 2016-12-16 13:35 | Internal Med Progress Note ---
Addendum entered and electronically signed by Kate Hess DO 12/16/16 16:17: Continue to monitor creatinine. Original Note: <Kate Hess - Last Filed: 12/16/16 15:47> Date of Encounter: 12/16/16 Time of Encounter: 10:45 - Assessment and plan (1) Transient cerebral ischemia Current Visit: Yes Status: Acute Assessment and plan: Sudden onset of right facial numbness and right hand numbness concerning for TIA - patient states she no longer has this symptom -carotid Doppler: bilateral ICA has a severe, 60-79% stenosis -MRI of the brain was negative for acute CVA -echocardiogram: LVEF 60% normal left ventricular size in systolic function, while diastolic dysfunction of the left ventricle, no pulmonary hypertension or valvular dysfunction -Vascular consulted -We will check lipid panel -Continue Plavix, simvastatin Qualifiers: Transient cerebral ischemia type: unspecified Qualified Code(s): G45.9 - Transient cerebral ischemic attack, unspecified (2) Right hip pain Current Visit: Yes Status: Acute Assessment and plan: Hip x-ray shows no fracture MRI shows no fracture or any acute abnormalities -continue patient medication of hydrocodone for pain (3) Low back pain radiating down leg Current Visit: Yes Status: Acute Assessment and plan: She reports that pain rating on the leg has improved some. She does have tenderness to palpation of the lower lumbar spine. She has a history of degenerative disease. Some of her hip pain could be referred from degenerative disc disease and or spinal stenosis. MRI of the lumbar spine shows findings concerning for degenerative disease. Pain consistent with sciatica. MRI of hip shows mild liberal degeneration with no discrete tear -Continue hydrocodone in gabapentin. (4) HTN (hypertension) Current Visit: Yes Status: Chronic Assessment and plan: Patient's blood pressure has been low: 96/59 Continue on medications of atenol, AM lasix hold lisinopril, isosorbide mono nitrate, and PM lasix Qualifiers: Hypertension type: essential hypertension Qualified Code(s): I10 - Essential (primary) hypertension (5) DM2 (diabetes mellitus, type 2) Current Visit: Yes Status: Acute Assessment and plan: Continue insulin sliding scale low-dose continue glimiperide diabetic diet Qualifiers: Diabetes mellitus complication status: without complication Diabetes mellitus fdc insulin use: without fdc use Qualified Code(s): E11.9 - Type 2 diabetes mellitus without complications (6) DVT prophylaxis Current Visit: Yes Status: Acute Assessment and plan: Lovenox - Subjective Interval history: Patient is lying in bed comfortably with her book in hand She has no complaints at this time - Constitutional Vitals: Temp Pulse Resp BP Pulse Ox 98.7 F 61 15 96/59 93 12/16/16 11:28 12/16/16 11:28 12/16/16 11:28 12/16/16 11:28 12/16/16 11:28 General appearance: Present: A&O X 3, pleasant, no acute distress, answers questions appropriately Exam: Gen.: Vitals noted. No acute distress. AAOx3 HEENT: oropharynx clear, Normocephalic, atraumatic Cardiac: RRR, no murmur, +S1/S2 Pulmonary: CTA bilaterally, no wheezes, rales or rhonchi, equal chest expansion Abdomen: soft, nontender, Bowel sounds noted, no guarding Back: tender in lumbar MSK: ROM intact, no joint swelling noted +right hip tenderness Extremities: no BLE edema, nontender calf, no cyanosis or clubbing Neuro: A&Ox3, moves all extremities, no focal deficits Internal Medicine: Result - Labs CBC & Chem 7: 12/15/16 05:04 12/15/16 05:04 - Impressions Impressions Echocardiogram 12/15/16 10:35 Impressions: LVEF 60%. Normal left ventricular size and systolic function. There is evidence of mild diastolic dysfunction of the left ventricle. Normal right ventricular size and function. No significant valvular dysfunction. No pulmonary hypertension. No PFO with saline contrast. Left Ventricular Wall Motion: Rest Echo Findings All wall segments showed normal motion. Findings: Study Quality * Technically challenging due to body habitus. ECG Findings * Normal sinus rhythm. Left Ventricle * LVEF 60%. * Mild left ventricular diastolic dysfunction. * Normal LV chamber size, wall thickness and function. Aorta * Not well visualized. Aortic Valve * No aortic regurgitation. * Trileaflet aortic valve. * Normal aortic valve structure. * No aortic stenosis. Mitral Valve * Normal mitral valve structure. * No mitral regurgitation. * No mitral stenosis. Tricuspid Valve * Tricuspid valve not well visualized. * No tricuspid regurgitation. * Estimated RA pressure is 3 mmHg. Pulmonic Valve * Pulmonic valve is not well visualized. * No pulmonic stenosis. * No pulmonic regurgitation. Pulmonary Artery * Pulmonary artery not well visualized. Right Ventricle * Normal right ventricular structure and function. Left Atrium * Normal left atrial size. Right Atrium * Normal right atrial size. Pericardium * There is no pericardial effusion present. Interatrial Septum * No evidence of PFO by color Doppler. * No evidence of PFO with agitated saline contrast. IVC * Normal IVC dimensions and inspiratory collapse. Consult Discharge Plan - Plan Referrals: Sarah Parkinson CNP [Primary Care Provider] - <Olaf Ferrari - Last Filed: 12/16/16 19:30> Date of Encounter: 12/16/16 - Assessment and plan (1) Transient cerebral ischemia Current Visit: Yes Status: Acute Qualifiers: Transient cerebral ischemia type: unspecified Qualified Code(s): G45.9 - Transient cerebral ischemic attack, unspecified (2) Right hip pain Current Visit: Yes Status: Acute (3) Low back pain radiating down leg Current Visit: Yes Status: Acute (4) HTN (hypertension) Current Visit: Yes Status: Chronic Qualifiers: Hypertension type: essential hypertension Qualified Code(s): I10 - Essential (primary) hypertension (5) DM2 (diabetes mellitus, type 2) Current Visit: Yes Status: Acute Qualifiers: Diabetes mellitus complication status: without complication Diabetes mellitus long chain dyeing machine operator insulin use: without fdc use Qualified Code(s): E11.9 - Type 2 diabetes mellitus without complications - Constitutional Vitals: Temp Pulse Resp BP Pulse Ox 98.0 F 59 16 106/53 97 12/16/16 19:00 12/16/16 19:00 12/16/16 19:00 12/16/16 19:00 12/16/16 19:00 Internal Medicine: Result - Labs CBC & Chem 7: 12/15/16 05:04 12/15/16 05:04 - Impressions Impressions Echocardiogram 12/15/16 10:35 Impressions: LVEF 60%. Normal left ventricular size and systolic function. There is evidence of mild diastolic dysfunction of the left ventricle. Normal right ventricular size and function. No significant valvular dysfunction. No pulmonary hypertension. No PFO with saline contrast. Left Ventricular Wall Motion: Rest Echo Findings All wall segments showed normal motion. Findings: Study Quality * Technically challenging due to body habitus. ECG Findings * Normal sinus rhythm. Left Ventricle * LVEF 60%. * Mild left ventricular diastolic dysfunction. * Normal LV chamber size, wall thickness and function. Aorta * Not well visualized. Aortic Valve * No aortic regurgitation. * Trileaflet aortic valve. * Normal aortic valve structure. * No aortic stenosis. Mitral Valve * Normal mitral valve structure. * No mitral regurgitation. * No mitral stenosis. Tricuspid Valve * Tricuspid valve not well visualized. * No tricuspid regurgitation. * Estimated RA pressure is 3 mmHg. Pulmonic Valve * Pulmonic valve is not well visualized. * No pulmonic stenosis. * No pulmonic regurgitation. Pulmonary Artery * Pulmonary artery not well visualized. Right Ventricle * Normal right ventricular structure and function. Left Atrium * Normal left atrial size. Right Atrium * Normal right atrial size. Pericardium * There is no pericardial effusion present. Interatrial Septum * No evidence of PFO by color Doppler. * No evidence of PFO with agitated saline contrast. IVC * Normal IVC dimensions and inspiratory collapse. - Attending Attestation I examined this patient and my medical decision-making was reviewed with the Resident Physician, Dr. Hess. I agree with the documented findings, disposition and treatment plan as described except to the extent set forth below. My findings are summarized below: Carotid Dopplers reveal significant bilateral stenosis. She has a history of recurrent TIAs. I have discussed the case with vascular surgery. At this point we are waiting recommendations.
[2016-12-16] MEDS: *HR* HYDROcodone/Acet 10/325 mg TABLET PO PRN (16:17)
[2016-12-16] MEDS: Ibuprofen 600 MG TABLET PO PRN (19:27)
[2016-12-17] MEDS: *HR* HYDROcodone/Acet 10/325 mg TABLET PO PRN ×3 (05:35→20:16)
[2016-12-17] MEDS: *HR* Enoxaparin 40 MG/0.4 ML SYRINGE SQ SCH (05:36)
[2016-12-17] MEDS: Insulin LISPRO 300 UNITS/3 ML VIAL SQ SCH ×4 (07:43→21:02)
[2016-12-17] MEDS: (Rotigotine [Neupro] 1 PATCH) TP SCH (07:43)
[2016-12-17] MEDS: Gabapentin 400 MG CAPSULE PO SCH ×3 (07:46→20:15)
[2016-12-17] MEDS: *HR* Glimepiride 2 MG TABLET PO SCH (07:46)
[2016-12-17] MEDS: Famotidine 20 MG TABLET PO SCH ×2 (07:47→20:15)
[2016-12-17] MEDS: Loratadine 10 MG TABLET PO SCH (07:47)
[2016-12-17] MEDS: Ibuprofen 600 MG TABLET PO PRN (07:47)
[2016-12-17] MEDS: Furosemide 40 MG TABLET PO SCH (07:47)
[2016-12-17] MEDS: FLUoxetine 20 MG CAPSULE PO SCH ×2 (07:47→20:15)
[2016-12-17] MEDS: BuPROPion XL (24 HR) 150 MG TABLET PO SCH (07:48)
--- NOTE | 2016-12-17 11:49 | Internal Med Progress Note ---
<Kate Hess - Last Filed: 12/17/16 15:55> Date of Encounter: 12/17/16 Time of Encounter: 11:49 - Assessment and plan (1) Transient cerebral ischemia Current Visit: Yes Status: Acute Assessment and plan: Sudden onset of right facial numbness and right hand numbness concerning for TIA - patient states she no longer has this symptom -patient denies vision change, weakness, numbness in face, chest pain, shortness of breath -carotid Doppler: bilateral ICA has a severe, 60-79% stenosis -MRI of the brain was negative for acute CVA -echocardiogram: LVEF 60% normal left ventricular size in systolic function, while diastolic dysfunction of the left ventricle, no pulmonary hypertension or valvular dysfunction -Vascular assistance appreciated -ordered CTA angio of neck per vascular, will have to possibly do procedure tomorrow due to elevated creatinine -Continue Plavix, simvastatin - Qualifiers: Transient cerebral ischemia type: unspecified Qualified Code(s): G45.9 - Transient cerebral ischemic attack, unspecified (2) MARCEL (acute kidney injury) Current Visit: Yes Status: Acute Assessment and plan: Elevated creatinine of 1.14 Maybe due to diuretics and NSAIDs will hold diuretics and NSAIDs avoid nephrotoxic agents hold on fluids do to congestive heart failure will continue to monitor renal function (3) Right hip pain Current Visit: Yes Status: Acute Assessment and plan: Patient reports that hip and back pain are well-controlled Hip x-ray shows no fracture MRI shows no fracture or any acute abnormalities -continue patient medication of hydrocodone for pain -refer patient pain management upon discharge (4) Low back pain radiating down leg Current Visit: Yes Status: Acute Assessment and plan: She reports that pain rating on the leg has improved some. She does have tenderness to palpation of the lower lumbar spine. She has a history of degenerative disease. Some of her hip pain could be referred from degenerative disc disease and or spinal stenosis. MRI of the lumbar spine shows findings concerning for degenerative disease. Pain consistent with sciatica. MRI of hip shows mild liberal degeneration with no discrete tear -Continue hydrocodone in gabapentin. (5) HTN (hypertension) Current Visit: Yes Status: Chronic Assessment and plan: Blood pressure is stable Continue on medications of atenol, AM lasix hold lisinopril, isosorbide mono nitrate, and PM lasix Qualifiers: Hypertension type: essential hypertension Qualified Code(s): I10 - Essential (primary) hypertension (6) DM2 (diabetes mellitus, type 2) Current Visit: Yes Status: Acute Assessment and plan: Continue insulin sliding scale low-dose continue glimiperide diabetic diet Qualifiers: Diabetes mellitus complication status: without complication Diabetes mellitus half-way insulin use: without terminal operations manager use Qualified Code(s): E11.9 - Type 2 diabetes mellitus without complications (7) DVT prophylaxis Current Visit: Yes Status: Acute Assessment and plan: Lovenox - Subjective Interval history: Patient is lying in bed comfortably. She has no complaints at this time She wanted to know if thought she would be discharged today. She stated that her hip pain is under control. She denies dizziness, syncope, numbness, chest pain, shortness of breath. - Constitutional Vitals: Temp Pulse Resp BP Pulse Ox 97.9 F 60 19 103/61 97 12/17/16 11:43 12/17/16 11:43 12/17/16 11:43 12/17/16 11:43 12/17/16 11:43 General appearance: Present: A&O X 3, pleasant, no acute distress, answers questions appropriately Exam: Gen.: Vitals noted. No acute distress. AAOx3 HEENT: oropharynx clear, Normocephalic, atraumatic Neck: Supple. No adenopathy. Cardiac: RRR, no murmur, +S1/S2 Pulmonary: RALES in bilateral bases, CTA bilaterally, no wheezes, rhonchi, equal chest expansion Abdomen: soft, nontender, Bowel sounds noted, no guarding Extremities: no BLE edema, nontender calf, no cyanosis or clubbing, right hip tenderness Neuro: A&Ox3, moves all extremities, no focal deficits Psych: Appropriate mood and behavior Internal Medicine: Result - Labs CBC & Chem 7: 12/15/16 05:04 12/17/16 14:26 Consult Discharge Plan - Plan Referrals: Sarah Parkinson CNP [Primary Care Provider] - <Olaf Ferrari - Last Filed: 12/18/16 07:45> Date of Encounter: 12/17/16 - Assessment and plan (1) Transient cerebral ischemia Current Visit: Yes Status: Acute Qualifiers: Transient cerebral ischemia type: unspecified Qualified Code(s): G45.9 - Transient cerebral ischemic attack, unspecified (2) Right hip pain Current Visit: Yes Status: Acute (3) Low back pain radiating down leg Current Visit: Yes Status: Acute (4) HTN (hypertension) Current Visit: Yes Status: Chronic Qualifiers: Hypertension type: essential hypertension Qualified Code(s): I10 - Essential (primary) hypertension (5) DM2 (diabetes mellitus, type 2) Current Visit: Yes Status: Chronic Qualifiers: Diabetes mellitus complication status: without complication Diabetes mellitus terminal operations manager insulin use: without half-way use Qualified Code(s): E11.9 - Type 2 diabetes mellitus without complications - Constitutional Vitals: Temp Pulse Resp BP Pulse Ox 97.6 F 56 16 127/76 92 12/18/16 06:59 12/18/16 06:59 12/18/16 06:59 12/18/16 06:59 12/18/16 06:59 Internal Medicine: Result - Labs CBC & Chem 7: 12/15/16 05:04 12/18/16 03:20 Labs: BMP 12/17/16 12/18/16 14:26 03:20 Sodium 140 141 Potassium 3.8 4.0 Chloride 102 104 Carbon Dioxide 30 H 31 H BUN 17 16 Creatinine 1.14 H 1.06 Glucose 112 H 125 H Calcium 9.0 8.4 L - Impressions Impressions Neck CTA 12/17/16 19:00 IMPRESSION: No acute abnormality of the CTA of the neck. No flow limiting stenosis or acute dissection. D/ / Pal Menchaca MD / Pal Menchaca MD Interpreting Provider: Pal Menchaca MD - Attending Attestation I examined this patient and my medical decision-making was reviewed with the Resident Physician, Dr. Hess. I agree with the documented findings, disposition and treatment plan as described except to the extent set forth below. I have independently obtained history and examined the patient and my findings are summarized below: Patient reports right hip pain. She states that her right facial numbness has resolved and she has not had any recurrence over the last 2 days. Heart exam reveals regular S1 and S2. Lungs are clear. Abdomen is soft. Plan: Follow-up with vascular surgery regarding bilateral carotid stenosis. We will obtain a CT angiogram of the neck per vascular surgery recommendations. She is at high risk for morbidity and complications due to cardiovascular studies with IV contrast. We will provide IV fluid hydration before and after the study and hold the Lasix for today.
[2016-12-17] MEDS: ALPRAZolam 1 MG TABLET PO PRN ×2 (13:23→20:15)
--- NOTE | 2016-12-17 15:11 | Vascular/Endovasc Consult Note ---
Date of Encounter: 12/17/16 Time of Encounter: 12:20 Assessment and Plan (1) Carotid stenosis, bilateral Current Visit: Yes Status: Chronic The pathophysiology and natural history of carotid stenosis was discussed with the patient and all questions were answered. The patient has atypical symptoms for possible CVA, TIA or amaurosis fugax. Her duplex reveals bilateral 60-79% internal carotid artery stenosis. Her velocities are at the lower end of the range. At this time, a CTA of the neck is recommended for further evaluation. She will continue with her daily plavix. (2) DM2 (diabetes mellitus, type 2) Current Visit: Yes Status: Chronic She was counseled regardign atherosclerotic risk factor reduction. (3) HTN (hypertension) Current Visit: Yes Status: Chronic Qualifiers: Hypertension type: essential hypertension Qualified Code(s): I10 - Essential (primary) hypertension - History of Present Illness Consult date: 12/16/16 Requesting physician: Olaf Ferrari Consult reason: Carotid stenosis, possible TIA Chief complaint: Carotid stenosis History of present illness: Ms. Dodge is a 65 year old female with a history of hypertension, diabetes , hyperlipidemia and COPD who was admitted to [facility] with complaints of right hip pain. The patient reports that she has also been experiencing right facial parasthesias. She also reports that at times she has involuntarily dropped items she is holding in her right hand. As part of her evaluation, she underwent a carotid duplex which revealed significant bilateral internal carotid artery stenosis. The patient reports that her symptoms have been present for awhile and do not concern her at this time. She states that she is focused on her hip pain. She denies any other symptoms associated with CVA, TIA or amaurosis fugax. She denies chest pain or shortness of breath. Past Med Surg Social Fam HX - Past Medical History Medical history: COPD, diabetes, hypertension, TIA Psychiatric history: no psych history - Past Surgical History Surgical History: no surgical history - Social History Smoking Status: Never smoker Smokeless Tobacco Status: No Alcohol use: none Drug use: none - Family History Mother Living Status: Hx Family Cardiac Disorders: Yes (CHF/ open heart) Hx Family Respiratory Disorders: Yes (COPD) Hx Family Endocrine Disorder: Yes (DM) Father Living Status: Hx Family Cardiac Disorders: Yes (CHF) Hx Family Endocrine Disorder: Yes (DM) Medications and Allergies ALPRAZolam [Xanax 1 MG Tablet] 1 mg PO QID PRN 12/13/16 [History] Amitriptyline [Elavil] 50 mg PO BID 12/13/16 [History] Atenolol [Tenormin] 50 mg PO BID 12/13/16 [History] Bupropion HCl [Wellbutrin Xl] 300 mg PO DAILY 12/13/16 [History] Clopidogrel [Plavix] 75 mg PO DAILY 12/13/16 [History] Doxepin HCl [Doxepin HCl] 50 mg PO HS 12/13/16 [History] Esomeprazole Magnesium [Nexium] 40 mg PO DAILY 12/13/16 [History] FLUoxetine HCl [PROzac] 20 mg PO BID 12/13/16 [History] Furosemide [Lasix] 40 mg PO QPM 12/13/16 [History] Furosemide [Lasix] 80 mg PO QAM 12/13/16 [History] Gabapentin [Neurontin] 800 mg PO TID 12/13/16 [History] Glimepiride [Amaryl] 2 mg PO DAILY 12/13/16 [History] HYDROcodone/Acet 10/325 mg [Bailey 10-325 mg] 1 tab PO Q6HR PRN 12/13/16 [History ] Hydroxychloroquine [Plaquenuil] 200 mg PO BID 12/13/16 [History] Isosorbide MONOnitrate (24 HR) [Imdur] 60 mg PO DAILY 12/13/16 [History] Lisinopril [Zestril] 20 mg PO BID 12/13/16 [History] Oxybutynin Chloride [Ditropan Xl] 10 mg PO DAILY 12/13/16 [History] Rotigotine [Neupro] 1 patch TD DAILY 12/13/16 [History] Simvastatin [Zocor] 40 mg PO DAILY 12/13/16 [History] Xyzal 5 mg PO DAILY 12/13/16 [History] 3 Allergy/AdvReac Type Severity Reaction Status Date / Time diphenhydramine Allergy Palpitation Verified 12/13/16 12:54 [From Benadryl] s shellfish derived Allergy Palpitation Verified 12/13/16 12:54 s All Systems Review: A 10-system review of systems was performed and is negative for pertinent findings except as documented above in the HPI. - Cardiovascular Cardiovascular: no chest pain at rest, no chest pain with exertion, no dyspnea at rest, no dyspnea on exertion Exam Vital Signs, Last 4 Hours Temp Pulse Resp BP Pulse Ox 12/17/16 11:43 97.9 F 60 19 103/61 97 12/17/16 10:41 57 19 128/73 93 General: Present: Conversant, No Apparent Distress HEENT: Present: Atraumatic, Normocephaly, Trachea midline, Pupils equal Neck: Absent: JVD, Lymphadenopathy, Left Carotid bruit, Right Carotid bruit Cardiac: Present: Reg Rate and Rhythm, Normal S1 and S2, No Murmur Lungs: Present: Normal Breath Sounds, No Wheeze, Rales, Rhonchi Neuro: Present: Alert and responsive, No focal deficits noted, Motor nerves grossly intact, Sensory nerves grossly intact Abdomen: Present: Soft, Non-tender. Absent: Masses Vascular: Present: Normal capillary refill, Pulse, normal. Absent: Clubbing, Cyanosis, Edema Skin: Present: No rashes noted on visualized skin Consult Discharge Plan - Plan Referrals: Sarah Parkinson RIPRAP PLACING SUPERVISOR [Primary Care Provider] -
[2016-12-17 15:17] LABS: Potassium 3.8 mEq/L (3.5-4.5)
[2016-12-17] MEDS ORDERED: 0.9 % Sodium Chloride 500 ML IVC ONE (16:55)
[2016-12-17] MEDS ORDERED: 0.9 % Sodium Chloride 1,000 ML IVC SCH (17:00)
--- NOTE | 2016-12-17 17:30 | Vascular/Endovas Progress Note ---
Date of Encounter: 12/17/16 Time of Encounter: 17:20 - Assessment and plan (1) Carotid stenosis, bilateral Current Visit: Yes Status: Chronic The patient has atypical symptoms for possible CVA, TIA or amaurosis fugax. Her duplex reveals bilateral 60-79% internal carotid artery stenosis. Her velocities are at the lower end of the range. Her CTA has been ordered. Will review results when available. She will continue with her daily plavix. (2) HTN (hypertension) Current Visit: Yes Status: Chronic She was again counseled regarding atherosclerotic risk factor reduction. Qualifiers: Hypertension type: essential hypertension Qualified Code(s): I10 - Essential (primary) hypertension (3) DM2 (diabetes mellitus, type 2) Current Visit: Yes Status: Chronic Qualifiers: Diabetes mellitus complication status: without complication Diabetes mellitus retirement insulin use: without intermediate project manager use Qualified Code(s): E11.9 - Type 2 diabetes mellitus without complications - Subjective Interval history: The patient reports that her hip is feeling better today. She denies any focal neurologic deficits or visual disturbances. She states that she has been having chronic problems with both of her hands. She denies chest pain or shortness of breath. Vital Signs, Last 4 Hours Temp Pulse Resp BP Pulse Ox 12/17/16 15:26 98.1 F 68 20 114/62 96 - Physical Examination General: Present: Conversant, No Apparent Distress HEENT: Present: Atraumatic, Pupils equal Cardiac: Present: Reg Rate and Rhythm Lungs: Present: Normal Breath Sounds, No Wheeze, Rales, Rhonchi Neuro: Present: Alert and responsive, No focal deficits noted, Motor nerves grossly intact, Sensory nerves grossly intact Vascular: Present: Normal capillary refill. Absent: Cyanosis, Edema Abdomen: Present: Soft Skin: Present: No rashes noted on visualized skin Results 12/15/16 05:04 12/18/16 03:20 Lab Results, Last 24 hours 12/17/16 14:26 Sodium 140 Potassium 3.8 Chloride 102 Carbon Dioxide 30 H BUN 17 Creatinine 1.14 H Glucose 112 H Calcium 9.0 Consult Discharge Plan - Plan Referrals: Sarah Parkinson FRONT DESK MONITOR [Primary Care Provider] -
[2016-12-18] MEDS: *HR* HYDROcodone/Acet 10/325 mg TABLET PO PRN ×2 (03:45→11:16)
[2016-12-18 04:43] LABS: BUN/Creatinine Ratio 15 (6-26); Blood Urea Nitrogen 16 mg/dL (7-20); Calcium 8.4 mg/dL (8.6-10.8); Carbon Dioxide 31 mEq/L (19-29); Chloride 104 mEq/L (98-109); Glucose 125 mg/dL (70-99); Osmolality,Calculated 295 (280-300); Sodium 141 mEq/L (136-145); eGFR For African Americans > 60 (> 60); eGFR For Non-African Americans 52 (> 60)
[2016-12-18] MEDS: *HR* Enoxaparin 40 MG/0.4 ML SYRINGE SQ SCH (05:50)
[2016-12-18] MEDS: BuPROPion XL (24 HR) 150 MG TABLET PO SCH (08:22)
[2016-12-18] MEDS: *HR* Glimepiride 2 MG TABLET PO SCH (08:22)
[2016-12-18] MEDS: FLUoxetine 20 MG CAPSULE PO SCH (08:22)
[2016-12-18] MEDS: Loratadine 10 MG TABLET PO SCH (08:23)
[2016-12-18] MEDS: Gabapentin 400 MG CAPSULE PO SCH (08:24)
[2016-12-18] MEDS: Famotidine 20 MG TABLET PO SCH (08:24)
[2016-12-18] MEDS: Insulin LISPRO 300 UNITS/3 ML VIAL SQ SCH ×2 (08:28→11:15)
[2016-12-18] MEDS: (Rotigotine [Neupro] 1 PATCH) TP SCH (09:10)
--- NOTE | 2016-12-18 09:20 | Discharge Summary ---
<Kate Hess - Last Filed: 12/18/16 15:32> Date of Encounter: 12/18/16 Time of Encounter: 09:15 - Discharge Diagnosis (1) Transient cerebral ischemia Priority: Primary Status: Acute Qualifiers: Transient cerebral ischemia type: unspecified Qualified Code(s): G45.9 - Transient cerebral ischemic attack, unspecified (2) MARCEL (acute kidney injury) Priority: Secondary Status: Acute (3) Right hip pain Priority: Secondary Status: Acute (4) Low back pain radiating down leg Priority: Secondary Status: Acute (5) HTN (hypertension) Priority: Secondary Status: Chronic Qualifiers: Hypertension type: essential hypertension Qualified Code(s): I10 - Essential (primary) hypertension (6) DM2 (diabetes mellitus, type 2) Priority: Secondary Status: Chronic Qualifiers: Diabetes mellitus complication status: without complication Diabetes mellitus shelter insulin use: without shelter use Qualified Code(s): E11.9 - Type 2 diabetes mellitus without complications (7) DVT prophylaxis Priority: Secondary Status: Acute - Discharge Medications Prescriptions: HYDROcodone/Acet 10/325 mg [[place] 10-325 mg] 1 each PO Q6HR PRN 3 Days #12 tablet PRN Reason: Pain Home Medications: ALPRAZolam [Xanax 1 MG Tablet] 1 mg PO QID PRN 12/13/16 [History] Amitriptyline [Elavil] 50 mg PO BID 12/13/16 [History] Atenolol [Tenormin] 50 mg PO BID 12/13/16 [History] Bupropion HCl [Wellbutrin Xl] 300 mg PO DAILY 12/13/16 [History] Clopidogrel [Plavix] 75 mg PO DAILY 12/13/16 [History] Doxepin HCl 50 mg PO HS 12/13/16 [History] Esomeprazole Magnesium [Nexium] 40 mg PO DAILY 12/13/16 [History] FLUoxetine HCl [Prozac] 20 mg PO BID 12/13/16 [History] Furosemide [Lasix] 40 mg PO QPM 12/13/16 [History] Furosemide [Lasix] 80 mg PO QAM 12/13/16 [History] Gabapentin [Neurontin] 800 mg PO TID 12/13/16 [History] Glimepiride [Amaryl] 2 mg PO DAILY 12/13/16 [History] HYDROcodone/Acet 10/325 mg [[place] 10-325 mg] 1 tab PO Q6HR PRN 12/13/16 [History ] Hydroxychloroquine [Plaquenuil] 200 mg PO BID 12/13/16 [History] Isosorbide MONOnitrate (24 HR) [Imdur] 60 mg PO DAILY 12/13/16 [History] Lisinopril [Zestril] 20 mg PO BID 12/13/16 [History] Oxybutynin Chloride [Ditropan Xl] 10 mg PO DAILY 12/13/16 [History] Rotigotine [Neupro] 1 patch TD DAILY 12/13/16 [History] Simvastatin [Zocor] 40 mg PO DAILY 12/13/16 [History] Xyzal 5 mg PO DAILY 12/13/16 [History] HYDROcodone/Acet 10/325 mg [[place] 10-325 mg] 1 each PO Q6HR PRN 3 Days #12 tablet 12/18/16 [Rx] Allergies/Adverse Reactions: 3 Allergy/AdvReac Type Severity Reaction Status Date / Time diphenhydramine Allergy Palpitation Verified 12/13/16 12:54 [From Benadryl] s shellfish derived Allergy Palpitation Verified 12/13/16 12:54 s Procedures/tests Complete & Pending: Procedures Performed prior 72 hours Category Date Time Status CTA Neck [CT angio neck] [CT] Stat Cat Scan 12/17/16 19:00 Completed Date of admission: 12/14/16 14:56 Primary care physician: Sarah Parkinson CNP Consults: 12/16/16 12:37 Consult to Vascular Surgery [CONS] Routine Consulting Provider: [facility] [place] Reason for Consult: b/l ICA 60-79% occluded Call Completed: Yes Discharging clinician: Olaf Ferrari - Patient Status Disposition: Home, Self-Care Condition: Good Functional capacity at discharge: independent ambulation Overall status at discharge: patient is progressing back to baseline - Discharge Instructions Instructions: Hip Pain (GEN) Follow Up With: Pain Mgt Nya Martinez [Provider Group] - 12/19/16 2:00 pm Sarah Parkinson CNP [Primary Care Provider] - 12/24/16 1:00 pm Additional Instructions: Follow-up with your family doctor in about a week take pain medication as needed for pain do not take NSAIDs such as ibuprofen for about 48 hours continue taking all home medications return to hospital if you should worsen such as with the pain, change in vision , passing out - Diet and Activity Activity: resume usual activities as tolerated Diet: advance to your usual diet Hospital course: Ms. Dodge is a 65 year old female with known PMH of TIA, Parkinson's disease, chronic parasthesia symptoms, HTN, HLD, CHF, and Low back pain. Now she presented to our ER today c/o worsening right hip pain and low back pain. She always feels numbness in her right leg. Denied any acute new onset of focal weakness, numbness or parasthesia symptoms. She did mention to ER attending about Facial numbness. Even her right facial numbness is chronic and intermittent for her. Her main concern and chief complaint today is right hip pain. Patient denied any trauma to right hip. Denied any chest pain, SOB, GI / symptoms. She was then admitted for possible TIA and acute on chronic hip pain. Later the patient states she no longer has this symptom of numbness in face. MRI of the brain was negative for acute CVA. Vascular surgery was consulted and requested carotid Doppler that showed bilateral ICA has a severe, 60-79% stenosis. Echocardiogram: LVEF 60% normal left ventricular size in systolic function, while diastolic dysfunction of the left ventricle, no pulmonary hypertension or valvular dysfunction. X-ray of hip did not show fractures. MRI of the lumbar spine showed findings concerning for degenerative disease. Pain consistent with sciatica. MRI of hip shows mild liberal degeneration with no discrete tear. The patient was given hydrocodone for pain along gabapentin. She reported that her hip and back pain were well controlled with the pain management regimen. It was found that she had an elevated creatinine of 1.14 so diuretics and NSAIDs were held. Nephrotoxic agents were avoided, IV fluids were held due to CHF, and renal function was monitored. Vascular then requested a CTA angio of neck which showed no flow limiting stenosis or dissection of the neck. Vascular was called by the hospitalist team and informed of the results of the CTA of neck, after which vascular gave the okay to send patient home. Vascular stated that the patient did not need f/u with them after discharge. Patient was then given IV fluids before and after imaging to avoid contrast nephropathy. The patient was informed of the results of the imaging and was pleased that she was able to be discharged home. She requested a referral to pain management since her PCP would no longer fill her hydrocodone. The patient denied vision change, weakness, numbness in face, chest pain, shortness of breath. The patient was instructed to f/u with her PCP in about a week. She was to continue her home medications and was given a script for a few days of pain medication. She was instructed to avoid NSAIDs such as ibuprofen for 48 hours. She stated a clear understanding of the treatment and plan, all questions were answered. She was instructed to return to the hospital if she were to worsen. - Time Spent with Patient Total time spent providing and/or coordinating discharge services: - Constitutional Vitals: Temp Pulse Resp BP Pulse Ox 97.6 F 56 16 127/76 92 12/18/16 06:59 12/18/16 06:59 12/18/16 06:59 12/18/16 06:59 12/18/16 08:00 General appearance: Present: A&O X 3, pleasant, no acute distress, answers questions appropriately Exam: Gen.: Vitals noted. No acute distress. AAOx3 HEENT: oropharynx clear, Normocephalic, atraumatic Neck: Supple. No adenopathy. Cardiac: RRR, no murmur, +S1/S2 Pulmonary: + Rales bases bilaterally, no wheezes, rhonchi, equal chest expansion Abdomen: soft, nontender, Bowel sounds noted, no guarding MSK: ROM intact, no joint swelling noted, tender right hip Extremities: no BLE edema, tender calf b/l, no cyanosis or clubbing Neuro: A&Ox3, moves all extremities, no focal deficits Psych: Appropriate mood and behavior <Olaf Ferrari - Last Filed: 12/18/16 17:42> Date of Encounter: 12/18/16 - Discharge Diagnosis (1) Transient cerebral ischemia Status: Acute Qualifiers: Transient cerebral ischemia type: unspecified Qualified Code(s): G45.9 - Transient cerebral ischemic attack, unspecified (2) Right hip pain Status: Acute (3) Low back pain radiating down leg Status: Acute (4) HTN (hypertension) Status: Chronic Qualifiers: Hypertension type: essential hypertension Qualified Code(s): I10 - Essential (primary) hypertension (5) DM2 (diabetes mellitus, type 2) Status: Chronic Qualifiers: Diabetes mellitus complication status: without complication Diabetes mellitus terminal operations manager insulin use: without shelter use Qualified Code(s): E11.9 - Type 2 diabetes mellitus without complications Procedures/tests Complete & Pending: Procedures Performed prior 72 hours Category Date Time Status CTA Neck [CT angio neck] [CT] Stat Cat Scan 12/17/16 19:00 Completed Date of admission: 12/14/16 14:56 Primary care physician: Sarah Parkinson CNP Consults: 12/16/16 12:37 Consult to Vascular Surgery [CONS] Routine Consulting Provider: [facility] [place] Reason for Consult: b/l ICA 60-79% occluded Call Completed: Yes Hospital course: Ms. Dodge is a 65 year old female - Time Spent with Patient Total time spent providing and/or coordinating discharge services: - Constitutional Vitals: Temp Pulse Resp BP Pulse Ox 98.4 F 61 16 114/74 96 12/18/16 10:53 12/18/16 10:53 12/18/16 10:53 12/18/16 10:53 12/18/16 10:53 - Attending Attestation I examined this patient and my medical decision-making was reviewed with the Resident Physician, Dr. Hess. I agree with the documented findings, disposition and treatment plan as described except to the extent set forth below. I have independently obtained history and examined the patient and my findings are summarized below: On exam patient is in no acute distress awake alert and oriented. Heart is regular. Lungs are clear bilaterally. Plan: We will provide pain control for sciatica. We will refer to outpatient pain clinic. Follow up closely with PCP.
[2016-12-18 10:58] VITALS: BP 114/74
[2016-12-18] MEDS: ALPRAZolam 1 MG TABLET PO PRN (11:17)
== END 2016-12-18 11:54 | disposition home or self-care (01) | DRG 68 ==
LOC: EMEROO 11:31 → 3BNU 11:31 → SUATTDRO 14:17 → 3BNU 14:51
PROVIDERS: ADMIT Family Medicine; ATTEND Internal Medicine